=== PATIENT | male | born 1940 | race Asian ===

== ENCOUNTER → 2017-11-16 | Outpatient (CLI) | payer MEDICARE ==
[~2017-11-16] MED LIST: FURO20TA3 PO; METO25TA35 PO; METO50TA82 PO; RIVA20TA PO
[2017-11-16 12:36] LABS: HEMOGLOBIN 15.8 g/dL (13.7-18.0); WHITE BLOOD COUNT 5.8 x10^3/uL (3.4-10)
[2017-11-16 12:48] LABS: ASPARTATE AMINO TRANSFERASE 20 U/L (15-37); BLOOD UREA NITROGEN 16 mg/dL (7-18)
== END | disposition home or self-care (01) ==
LOC: CFH 10:02
PROVIDERS: ATTEND Internal Medicine Cardiovascular Disease
DX: I10 Essential (primary) hypertension (principal)
CPT/HCPCS: 36415; 80053; 85025